=== PATIENT | male | born 1990 | race Caucasian/White ===

== ENCOUNTER → 2019-07-18 08:46 | Outpatient (BNVA) | payer MEDICARE, MEDICAID, SELFPAY | PROVIDERS: Family Provider Internal Medicine; PCP Internal Medicine; Visit Provider Nurse Practitioner | DX: F63.81 Intermittent explosive disorder (principal); F41.8 Other specified anxiety disorders | CPT/HCPCS: 99213 ==

== ENCOUNTER → 2020-01-27 07:43 | Outpatient (BNVA) | payer MEDICARE, MEDICAID, SELFPAY | PROVIDERS: Family Provider Internal Medicine; PCP Internal Medicine; Visit Provider Nurse Practitioner | DX: F63.81 Intermittent explosive disorder (principal); F41.8 Other specified anxiety disorders | CPT/HCPCS: 99213 ==

== ENCOUNTER → 2020-07-13 07:59 | Outpatient (BNVA) | payer MEDICARE, MEDICAID, SELFPAY | PROVIDERS: Family Provider Internal Medicine; PCP Internal Medicine; Visit Provider Nurse Practitioner | DX: F41.8 Other specified anxiety disorders (principal); F63.81 Intermittent explosive disorder | CPT/HCPCS: 99214 ==

== ENCOUNTER → 2020-09-28 09:01 | Outpatient (BNVA) | payer MEDICARE, MEDICAID, SELFPAY | PROVIDERS: Family Provider Internal Medicine; PCP Internal Medicine; Visit Provider Nurse Practitioner | DX: F41.8 Other specified anxiety disorders (principal); F63.81 Intermittent explosive disorder; F43.21 Adjustment disorder with depressed mood | CPT/HCPCS: 99214 ==

== ENCOUNTER → 2020-11-18 10:11 | Outpatient (BNVA) | payer MEDICARE, MEDICAID, SELFPAY | PROVIDERS: Family Provider Internal Medicine; PCP Internal Medicine; Visit Provider Nurse Practitioner | DX: F41.8 Other specified anxiety disorders (principal); F63.81 Intermittent explosive disorder; F43.21 Adjustment disorder with depressed mood | CPT/HCPCS: 99214 ==

== ENCOUNTER → 2021-05-12 09:14 | Outpatient (BNVA) | payer MEDICARE, MEDICAID, SELFPAY | PROVIDERS: Family Provider Internal Medicine; PCP Internal Medicine; Visit Provider Nurse Practitioner | DX: F41.8 Other specified anxiety disorders (principal); F63.81 Intermittent explosive disorder | CPT/HCPCS: 99214 ==

== ENCOUNTER → 2021-11-09 09:35 | Outpatient (BNVA) | payer MEDICARE, MEDICAID, SELFPAY | PROVIDERS: Family Provider Internal Medicine; PCP Internal Medicine; Visit Provider Nurse Practitioner | DX: R41.83 Borderline intellectual functioning (principal); F41.8 Other specified anxiety disorders; F63.81 Intermittent explosive disorder | CPT/HCPCS: 99214 ==

== ENCOUNTER → 2022-04-26 08:46 | Outpatient (BNVA) | payer MEDICARE, MEDICAID, SELFPAY | PROVIDERS: Family Provider Internal Medicine; Referring Provider Family Medicine; Visit Provider Orthopaedic Surgery | DX: M25.562 Pain in left knee (principal) | CPT/HCPCS: 73560; 73565; 99203 ==

== ENCOUNTER 2022-05-05 06:00 | Outpatient (RCR) | payer MEDICARE, MEDICAID, SELFPAY | END 2022-05-06 23:59 | disposition home or self-care (01) | LOC: SPT 06:00 | PROVIDERS: Visit Provider Orthopaedic Surgery | DX: M25.562 Pain in left knee (principal) | CPT/HCPCS: 97161 ==

== ENCOUNTER → 2023-01-31 12:38 | Outpatient (BNVA) | payer MEDICARE, MEDICAID, SELFPAY | PROVIDERS: PCP Family Medicine; Referring Provider Family Medicine; Visit Provider Nurse Practitioner Family | DX: L70.0 Acne vulgaris (principal); L21.8 Other seborrheic dermatitis; L91.0 Hypertrophic scar; L81.4 Other melanin hyperpigmentation; D22.5 Melanocytic nevi of trunk | CPT/HCPCS: 99204 ==

== ENCOUNTER → 2023-05-15 12:07 | Outpatient (BNVA) | payer MEDICARE, MEDICAID, SELFPAY | PROVIDERS: PCP Family Medicine; Visit Provider Registered Nurse Neonatal Intensive Care | DX: R09.81 Nasal congestion (principal) | CPT/HCPCS: 87426 ==

== ENCOUNTER → 2023-07-18 13:10 | Outpatient (BNVA) | payer OTHER, SELFPAY | PROVIDERS: PCP Family Medicine; Visit Provider Nurse Practitioner | DX: F63.81 Intermittent explosive disorder (principal); F41.8 Other specified anxiety disorders; Z79.899 Other long term (current) drug therapy | CPT/HCPCS: 80061; 83036 ==

== ENCOUNTER → 2023-08-03 12:57 | Outpatient (BNVA) | payer MEDICARE, MEDICAID, SELFPAY ==
[2023-07-26 12:44] VITALS: BP 150/104; BMI 40.0
== END ==
PROVIDERS: PCP Family Medicine; Visit Provider Nurse Practitioner Family
DX: L70.0 Acne vulgaris (principal); L81.4 Other melanin hyperpigmentation; D22.39 Melanocytic nevi of other parts of face
CPT/HCPCS: 99213

== ENCOUNTER → 2024-07-08 11:59 | Outpatient (BNVA) | payer OTHER, SELFPAY ==
[2024-04-22 09:39] VITALS: BP 150/104; BMI 40.0
== END ==
PROVIDERS: PCP Family Medicine; Visit Provider Nurse Practitioner
DX: Z79.899 Other long term (current) drug therapy (principal)
CPT/HCPCS: 80061; 83036

== ENCOUNTER → 2024-09-19 08:40 | Outpatient (BNVA) | payer MEDICARE, MEDICAID, SELFPAY ==
[2024-07-11 13:02] VITALS: BP 137/106; BMI 38.4
== END ==
PROVIDERS: PCP Family Medicine; Visit Provider Nurse Practitioner Family
DX: L70.0 Acne vulgaris (principal); L81.4 Other melanin hyperpigmentation; D22.39 Melanocytic nevi of other parts of face; L30.4 Erythema intertrigo
CPT/HCPCS: 99213